=== PATIENT | male | born 1990 | race Caucasian/White ===

== ENCOUNTER 2016-12-04 16:44 | Emergency (ER) | payer OTHER ==
--- NOTE | 2016-12-04 17:26 | ED CLINICAL REPORT ---
Clinical Report - Physicians/Mid Levels [facility] [address] [place] [address] 12/04/2016 16:45 Patient: MARIELA BLANCO Time Seen: 16:59; upon arrival, initial patient contact, initial documentation, patient care assumed. Arrived- By private vehicle. Historian- patient. HISTORY OF PRESENT ILLNESS Chief Complaint: COUGH, SORE THROAT and FEVER. This started about 1 weeks ago and is still present. The illness is described as moderate. The patient has had a mild cough productive of scant amounts of thin, yellow, white sputum . Patient is a smoker. There has been a change from the baseline sputum. He has had sputum production, a sore throat, nasal congestion, sinus pressure and sinus drainage. He has had fever of 100 F, muscle aches and a nasal discharge. No difficulty breathing, chest discomfort or pain, chills or hoarseness. He has had mild right ear pain. Additional history - The patient has had contact with a sick family member. Symptoms of the sick contact include cough. They have had similar symptoms. No recent travel. Similar symptoms previously: None. Recent medical care: Not recently seen/assessed. REVIEW OF SYSTEMS The patient has had a headache. No vomiting or diarrhea. All systems otherwise negative, except as recorded above. PAST HISTORY See nurses notes. PROBLEMS: Bronchitis. Narcotic Dependence. Crush Injury, Lower Extremity. Back Pain. Sprain. Cervical Strain. Concussion. Asthma. URI. Lung Disease. --16:53 Michelle Alarcon RTessaN. ADDITIONAL SURGERIES: None. --16:53 Michelle Alarcon RDenilson. SOCIAL HISTORY Light tobacco smoker. Occasional alcohol use. Not exposed to second-hand smoke at home. No recent travel. Is a local resident. FAMILY HISTORY Negative. ADDITIONAL NOTES The nursing notes have been reviewed with agreement regarding the chief complaint, HPI, ROS, PMH and patient medications and allergies. PHYSICAL EXAM Vital Signs: 12/04/2016 16:51 BP: 132/65. HR: 88. RR: 20. O2 saturation: 98%. Temp: 98.3 F. Pain level now: 5/10. Have been reviewed as normal and appear to be correct. Appearance: Alert. No acute distress. Eyes: Pupils equal, round and reactive to light. Eyes normal inspection. ENT: Ears not normal. Abnormal ear exam. (mild R fluid behind TM). Nose normal. Pharynx normal. Uvula midline. Neck: Normal inspection. Neck supple. CVS: Normal heart rate and rhythm. Heart sounds normal. Pulses normal. Respiratory: No respiratory distress. Breath sounds normal. Back: Normal inspection. Skin: Skin warm and dry. Normal skin color. No rash. Normal skin turgor. Extremities: Extremities exhibit normal ROM. No lower extremity edema. Neuro: Oriented X 3. No motor deficit. No sensory deficit. LABS, X-RAYS, AND EKG Laboratory Tests: Rapid Influenza Screen: (EMELIA: 12/04/2016 17:00) ( MsgRcvd 12/04/2016 17:22) Final results SPECIMEN DESCRIPTION: NASAL Test Result Flag Units (Reference) RAPID INFLUENZA SCREEN DATE: 12/04/16 INFLUENZA A: NEGATIVE SCREEN FOR INFLUENZA A INFLUENZA B: NEGATIVE SCREEN FOR INFLUENZA B . PROGRESS AND PROCEDURES Course of Care: MEDICAL REPRESENTATIVE Student Siva assisting with exam and pt care, with my total supervision. Patient counseled in person regarding the patient's stable condition, test results and diagnosis. 17:26. Differential Diagnosis: Other possible considerations: flu, uri, viral illness, bronchitis, sinusitis, pneumonia. Above considerations are based on history, physical exam and laboratory data. Differential diagnosis was discussed with patient. Disposition: Discharged home in good and unchanged condition (17:26). Condition: good and stable. CLINICAL IMPRESSION Acute viral rhinitis. INSTRUCTIONS Alternate Tylenol (Acetaminophen) and Motrin (Ibuprofen) for fever, temperature greater than 101 degrees orally. Take according to label instructions. Drink plenty of fluids for the next 24 hours until better. Do not smoke. Warnings: GENERAL WARNINGS: Return or contact your physician immediately if your condition worsens or changes unexpectedly, if not improving as expected, or if other problems arise. Specifically return if problem worsens. Follow-up: Follow up with your doctor in about five days even if well. Call for an appointment. Summary of care provided to patient. Understanding of the discharge instructions verbalized by patient. (Electronically signed by Nereyda Haji A.R.N.P. 12/04/2016 19:38)
--- NOTE | 2016-12-04 17:26 | ED CLINICAL REPORT ---
Clinical Report - Physicians/Mid Levels [facility] [address] [place] [address] 12/04/2016 16:45 Patient: MARIELA BLANCO Time Seen: 16:59; upon arrival, initial patient contact, initial documentation, patient care assumed. Arrived- By private vehicle. Historian- patient. HISTORY OF PRESENT ILLNESS Chief Complaint: COUGH, SORE THROAT and FEVER. This started about 1 weeks ago and is still present. The illness is described as moderate. The patient has had a mild cough productive of scant amounts of thin, yellow, white sputum . Patient is a smoker. There has been a change from the baseline sputum. He has had sputum production, a sore throat, nasal congestion, sinus pressure and sinus drainage. He has had fever of 100 F, muscle aches and a nasal discharge. No difficulty breathing, chest discomfort or pain, chills or hoarseness. He has had mild right ear pain. Additional history - The patient has had contact with a sick family member. Symptoms of the sick contact include cough. They have had similar symptoms. No recent travel. Similar symptoms previously: None. Recent medical care: Not recently seen/assessed. REVIEW OF SYSTEMS The patient has had a headache. No vomiting or diarrhea. All systems otherwise negative, except as recorded above. PAST HISTORY See nurses notes. PROBLEMS: Bronchitis. Narcotic Dependence. Crush Injury, Lower Extremity. Back Pain. Sprain. Cervical Strain. Concussion. Asthma. URI. Lung Disease. --16:53 Michelle Alarcon RTessaN. ADDITIONAL SURGERIES: None. --16:53 Michelle Alarcon RDenilson. SOCIAL HISTORY Light tobacco smoker. Occasional alcohol use. Not exposed to second-hand smoke at home. No recent travel. Is a local resident. FAMILY HISTORY Negative. ADDITIONAL NOTES The nursing notes have been reviewed with agreement regarding the chief complaint, HPI, ROS, PMH and patient medications and allergies. PHYSICAL EXAM Vital Signs: 12/04/2016 16:51 BP: 132/65. HR: 88. RR: 20. O2 saturation: 98%. Temp: 98.3 F. Pain level now: 5/10. Have been reviewed as normal and appear to be correct. Appearance: Alert. No acute distress. Eyes: Pupils equal, round and reactive to light. Eyes normal inspection. ENT: Ears not normal. Abnormal ear exam. (mild R fluid behind TM). Nose normal. Pharynx normal. Uvula midline. Neck: Normal inspection. Neck supple. CVS: Normal heart rate and rhythm. Heart sounds normal. Pulses normal. Respiratory: No respiratory distress. Breath sounds normal. Back: Normal inspection. Skin: Skin warm and dry. Normal skin color. No rash. Normal skin turgor. Extremities: Extremities exhibit normal ROM. No lower extremity edema. Neuro: Oriented X 3. No motor deficit. No sensory deficit. LABS, X-RAYS, AND EKG Laboratory Tests: Rapid Influenza Screen: (EMELIA: 12/04/2016 17:00) ( MsgRcvd 12/04/2016 17:22) Final results SPECIMEN DESCRIPTION: NASAL Test Result Flag Units (Reference) RAPID INFLUENZA SCREEN DATE: 12/04/16 INFLUENZA A: NEGATIVE SCREEN FOR INFLUENZA A INFLUENZA B: NEGATIVE SCREEN FOR INFLUENZA B . PROGRESS AND PROCEDURES Course of Care: PROGRESSIVE DIE MAKER Student Siva assisting with exam and pt care, with my total supervision. Patient counseled in person regarding the patient's stable condition, test results and diagnosis. 17:26. Differential Diagnosis: Other possible considerations: flu, uri, viral illness, bronchitis, sinusitis, pneumonia. Above considerations are based on history, physical exam and laboratory data. Differential diagnosis was discussed with patient. Disposition: Discharged home in good and unchanged condition (17:26). Condition: good and stable. CLINICAL IMPRESSION Acute viral rhinitis. INSTRUCTIONS Alternate Tylenol (Acetaminophen) and Motrin (Ibuprofen) for fever, temperature greater than 101 degrees orally. Take according to label instructions. Drink plenty of fluids for the next 24 hours until better. Do not smoke. Warnings: GENERAL WARNINGS: Return or contact your physician immediately if your condition worsens or changes unexpectedly, if not improving as expected, or if other problems arise. Specifically return if problem worsens. Follow-up: Follow up with your doctor in about five days even if well. Call for an appointment. Summary of care provided to patient. Understanding of the discharge instructions verbalized by patient. (Electronically signed by Nereyda Haji A.R.N.P. 12/04/2016 19:38)
--- NOTE | 2016-12-04 17:26 | ED ORDER SUMMARY ---
..... Patient: MARIELA BLANCO OrderSheet [facility] VisitID: [id number] [address] [place] [address] 26y, M Registration Date/Time: 12/04/2016 ORDER SHEET Weight: 74.8 kg (stated) Allergies: No Known Drug Allergy GENERAL ORDERS: Rapid Influenza Screen (Nasal Pharyngeal) (nasal) Urgent (17:01 12/04/2016 DDean R.N. per protocol) ([facility] 17:03 [facility]) MEDICATION ORDERS: IV FLUIDS: ORDER SHEET NOTES: [Electronically signed by Deepali Willoughby R.N. (17:46 12/04/2016)] [Electronically signed by Nereyda HajiNTessaPTessa (19:38 12/04/2016)] [Electronically locked/signed by Deepali Willoughby R.N. (17:46 12/04/2016)]
--- NOTE | 2016-12-04 17:26 | ED ORDER SUMMARY ---
..... Patient: MARIELA BLANCO OrderSheet [facility] VisitID: [id number] [address] [place] [address] 26y, M Registration Date/Time: 12/04/2016 ORDER SHEET Weight: 74.8 kg (stated) Allergies: No Known Drug Allergy GENERAL ORDERS: Rapid Influenza Screen (Nasal Pharyngeal) (nasal) Urgent (17:01 12/04/2016 DDean R.N. per protocol) ([facility] 17:03 [facility]) MEDICATION ORDERS: IV FLUIDS: ORDER SHEET NOTES: [Electronically signed by Deepali Willoughby R.N. (17:46 12/04/2016)] [Electronically signed by Nereyda HajiNTessaPTessa (19:38 12/04/2016)] [Electronically locked/signed by Deepali Willoughby R.N. (17:46 12/04/2016)]
--- NOTE | 2016-12-04 17:26 | ED NURSING NOTES ---
Clinical Report - Nurses [place] [address] [place] [address] 12/04/2016 16:45 Patient: MARIELA BLANCO TRIAGE Triage time 1645. Acuity: LEVEL 4. Chief Complaint: COUGH, FEVER and SORE THROAT. --16:56 Michelle Alarcon R.N. 16:51 12/04/16. BP: 132/65. HR: 88. RR: 20. O2 saturation: 98%. Temp: 98.3 F. Pain level now: 03/10. --16:56 Michelle Alarcon R.N. Weight: 74.8 kg stated. Height/Length: 68 inches Per Patient. BMI: 25.1. --16:52 Michelle Alarcon R.N. Medications None. --16:54 Michelle Alarcon R.N. Ibuprofen Oral 600 mg, PRN, last dose 0600. --16:54 Michelle Alarcon R.N. Tylenol 650mg at 12 noon . --16:54 Michelle Alarcon R.N. OTC cold med at noon . --16:55 Michelle Alarcon R.N. Robitussin cough syrup (OTC) last used last night 2200. --16:55 Michelle Alarcon R.N. Allergies No Known Drug Allergy. --16:54 Michelle Alarcon R.N. History Arrived by private vehicle. Historian: patient. Unaccompanied. Primary physician ([facility]). ( rt ear pain). He has had fatigue, a headache and sinus pain. Reports muscle aches. PAST MEDICAL HX: The patient has had contact with a sick spouse and child. SOCIAL HX: Light tobacco smoker (cigarette)- less than 1/2 a pack per day. Occasional alcohol use. No drug use. --16:56 Michelle Alracon R.N. PROBLEMS: Bronchitis. Narcotic Dependence. Crush Injury, Lower Extremity. Back Pain. Sprain. Cervical Strain. Concussion. Asthma. URI. Lung Disease. --16:53 Michelle Alarcon R.N. ADDITIONAL SURGERIES: None. --16:53 Michelle Alarcon R.N. Interventions ID band on patient. To treatment room. --16:56 Michelle Alarcon R.N. PHYSICAL ASSESSMENT 16:45. Ambulatory to room. Patient gowned. GENERAL / NEURO / PSYCH: Alert. Oriented X 4. Appears in no acute distress. HEENT: Abnormal ear exam. Voice within normal limits. Mucous membranes are pink. RESPIRATORY: Respirations not labored. Cough. CVS: Capillary refill less than 2 seconds. SKIN: Skin is warm and dry. --16:57 Michelle Alarcon R.N. NURSING PROGRESS NOTES 16:45. Patient gowned. Head of bed elevated. Patient identifiers checked. Call light placed in reach. Side rails up. Bed placed in lowest position. Patient ready for evaluation- chart flagged. --16:56 Michelle Alarcon R.N. 17:02 12/04/16. Patient ID band checked for patient name and birthdate: patient confirmed. Flu swab obtained by RN via nasal pharyngeal swab. Labeled in the presence of the patient and sent to lab. --17:02 Michelle Alarcon R.N. DISPOSITION / DISCHARGE 17:44 12/04/16. Departure time: 17:44 Dec 04 2016. Condition at departure: unchanged and stable. No learning barriers present. Patient verbalized understanding. Written instructions provided in Estonian. The patient was discharged home and unaccompanied at time of discharge. He left the Emergency Department ambulatory and via private vehicle. Patient driving. --17:44 Deepali Willoughby R.N. 17:44 12/04/16. BP: 132/63. HR: 90. RR: 18. O2 saturation: 100%. Temp: 98.3 F. Pain level now 8/10. --17:44 Deepali Willoughby R.N. Locked/Released at 12/04/2016 17:46 by Deepali Willoughby R.N.
--- NOTE | 2016-12-04 17:26 | ED NURSING NOTES ---
Clinical Report - Nurses [place] [address] [place] [address] 12/04/2016 16:45 Patient: MARIELA BLANCO TRIAGE Triage time 1645. Acuity: LEVEL 4. Chief Complaint: COUGH, FEVER and SORE THROAT. --16:56 Michelle Alarcon R.N. 16:51 12/04/16. BP: 132/65. HR: 88. RR: 20. O2 saturation: 98%. Temp: 98.3 F. Pain level now: 03/10. --16:56 Michelle Alarcon R.N. Weight: 74.8 kg stated. Height/Length: 68 inches Per Patient. BMI: 25.1. --16:52 Michelle Alarcon R.N. Medications None. --16:54 Michelle Alarcon R.N. Ibuprofen Oral 600 mg, PRN, last dose 0600. --16:54 Michelle Alarcon R.N. Tylenol 650mg at 12 noon . --16:54 Michelle Alarcon R.N. OTC cold med at noon . --16:55 Michelle Alarcon R.N. Robitussin cough syrup (OTC) last used last night 2200. --16:55 Michelle Alarcon R.N. Allergies No Known Drug Allergy. --16:54 Michelle Alarcon R.N. History Arrived by private vehicle. Historian: patient. Unaccompanied. Primary physician ([facility]). ( rt ear pain). He has had fatigue, a headache and sinus pain. Reports muscle aches. PAST MEDICAL HX: The patient has had contact with a sick spouse and child. SOCIAL HX: Light tobacco smoker (cigarette)- less than 1/2 a pack per day. Occasional alcohol use. No drug use. --16:56 Michelle Alarcon R.N. PROBLEMS: Bronchitis. Narcotic Dependence. Crush Injury, Lower Extremity. Back Pain. Sprain. Cervical Strain. Concussion. Asthma. URI. Lung Disease. --16:53 Michelle Alarcon R.N. ADDITIONAL SURGERIES: None. --16:53 Michelle Alarcon R.N. Interventions ID band on patient. To treatment room. --16:56 Michelle Alarcon R.N. PHYSICAL ASSESSMENT 16:45. Ambulatory to room. Patient gowned. GENERAL / NEURO / PSYCH: Alert. Oriented X 4. Appears in no acute distress. HEENT: Abnormal ear exam. Voice within normal limits. Mucous membranes are pink. RESPIRATORY: Respirations not labored. Cough. CVS: Capillary refill less than 2 seconds. SKIN: Skin is warm and dry. --16:57 Michelle Alarcon R.N. NURSING PROGRESS NOTES 16:45. Patient gowned. Head of bed elevated. Patient identifiers checked. Call light placed in reach. Side rails up. Bed placed in lowest position. Patient ready for evaluation- chart flagged. --16:56 Michelle Alarcon R.N. 17:02 12/04/16. Patient ID band checked for patient name and birthdate: patient confirmed. Flu swab obtained by RN via nasal pharyngeal swab. Labeled in the presence of the patient and sent to lab. --17:02 Michelle Alarcon R.N. DISPOSITION / DISCHARGE 17:44 12/04/16. Departure time: 17:44 Dec 04 2016. Condition at departure: unchanged and stable. No learning barriers present. Patient verbalized understanding. Written instructions provided in Portuguese. The patient was discharged home and unaccompanied at time of discharge. He left the Emergency Department ambulatory and via private vehicle. Patient driving. --17:44 Deepali Willoughby R.N. 17:44 12/04/16. BP: 132/63. HR: 90. RR: 18. O2 saturation: 100%. Temp: 98.3 F. Pain level now 8/10. --17:44 Deepali Willoughby R.N. Locked/Released at 12/04/2016 17:46 by Deepali Willoughby R.N.
--- NOTE | 2016-12-04 19:38 | ED MAR SUMMARY ---
..... Medication Administration Record [facility] [address] [place], [place] [id number] Patient: MARIELA BLANCO Smiley Visit ID: [id number] 26y, M Weight: 74.8 kg Height/Length: 68 in BMI: 25.1 ALLERGIES: No Known Drug Allergy
--- NOTE | 2016-12-04 19:38 | ED MAR SUMMARY ---
..... Medication Administration Record [facility] [address] [place], [place] [id number] Patient: MARIELA BLANCO Smiley Visit ID: [id number] 26y, M Weight: 74.8 kg Height/Length: 68 in BMI: 25.1 ALLERGIES: No Known Drug Allergy
--- NOTE | 2016-12-04 19:38 | ED MED RECONCILIATION SUMMARY ---
Patient: MARIELA BLANCO Medication Reconciliation Report [facility] VisitID: [id number] [address] [place] [address] 26y, M Registration Date/Time: 12/04/2016 Weight: 74.8 kg Height/Length: 68 in. BMI: 25.1 ALLERGIES: No Known Drug Allergy The patient's Home Medications are listed below: THE FOLLOWING MEDICATIONS NEED TO BE RECONCILED: Ibuprofen Oral 600 mg, PRN, last dose: 0600 OTC cold med at noon Robitussin cough syrup (OTC) last used last night 2200 Tylenol 650mg at 12 noon The source(s) of the original Home Medication information: Not obtained. The following Medications were given to the patient in the Emergency Department: None. The following Medications were prescribed to the patient: None.
--- NOTE | 2016-12-04 19:38 | ED MED RECONCILIATION SUMMARY ---
Patient: MARIELA BLANCO Medication Reconciliation Report [facility] VisitID: [id number] [address] [place] [address] 26y, M Registration Date/Time: 12/04/2016 Weight: 74.8 kg Height/Length: 68 in. BMI: 25.1 ALLERGIES: No Known Drug Allergy The patient's Home Medications are listed below: THE FOLLOWING MEDICATIONS NEED TO BE RECONCILED: Ibuprofen Oral 600 mg, PRN, last dose: 0600 OTC cold med at noon Robitussin cough syrup (OTC) last used last night 2200 Tylenol 650mg at 12 noon The source(s) of the original Home Medication information: Not obtained. The following Medications were given to the patient in the Emergency Department: None. The following Medications were prescribed to the patient: None.
--- NOTE | 2016-12-04 19:38 | ED DISCHARGE INSTRUCTIONS ---
Patient: MARIELA BLANCO General Instructions [facility] VisitID: [id number] [place] [address] 26y, M Registration Date/Time: 12/04/2016 Acute viral rhinitis. INSTRUCTIONS Alternate Tylenol (Acetaminophen) and Motrin (Ibuprofen) for fever, temperature greater than 101 degrees orally. Take according to label instructions. Drink plenty of fluids for the next 24 hours until better. Do not smoke. Warnings: GENERAL WARNINGS: Return or contact your physician immediately if your condition worsens or changes unexpectedly, if not improving as expected, or if other problems arise. Specifically return if problem worsens. Follow-up: Follow up with your doctor in about five days even if well. Call for an appointment. Summary of care provided to patient. Understanding of the discharge instructions verbalized by patient. ADDITIONAL INFORMATION Viral Respiratory Illness [Adult] You have an Upper Respiratory Illness (URI) caused by a virus. This illness is contagious during the first few days. It is spread through the air by coughing and sneezing or by direct contact (touching the sick person and then touching your own eyes, nose or mouth). Most viral illnesses go away within 7-10 days with rest and simple home remedies. Sometimes, the illness may last for several weeks. Antibiotics will not kill a virus and are generally not prescribed for this condition. Home Care: 1) If symptoms are severe, rest at home for the first 2-3 days. When you resume activity, don't let yourself get too tired. 2) Avoid being exposed to cigarette smoke (yours or others). 3) Tylenol (acetaminophen) or ibuprofen (Advil, Motrin) will help fever, muscle aching and headache. (Persons under 18 with fever should not take aspirin since this may cause liver damage.) 4) Your appetite may be poor, so a light diet is fine. Avoid dehydration by drinking 6-8 glasses of fluids per day (water, soft drinks, juices, tea, soup). Extra fluids will help loosen secretions in the nose and lungs. 5) Hfdj-ten-fviakzz cold medicines will not shorten the length of time youre sick, but they may be helpful for the following symptoms: cough (Robitussin DM); sore throat (Chloraseptic lozenges or spray); nasal and sinus congestion (Actifed, Sudafed, Chlortrimeton). Follow Up with your doctor or as advised if you dont improve over the next week. Get Prompt Medical Attention if any of the following occur: -- Cough with lots of colored sputum (mucus) or blood in your sputum -- Chest pain, shortness of breath, wheezing or have trouble breathing -- Severe headache; face, neck or ear pain -- Fever over 100.4 F (38.0 C) for more than three days -- You cant swallow due to throat pain Fever Control (Adult) A fever is a natural reaction of the body to an illness. In most cases, the temperature itself is not harmful. It actually helps the body fight infections. A fever does not need to be treated unless you feel very uncomfortable. Home Care If you feel warm, check your temperature. If you feel very uncomfortable and your temperature is at or higher than 100.4F (38C) oral, you may take acetaminophen (Tylenol) every 4 to 6 hours. If you cant take or keep down oral medicine, ask your pharmacist for Tylenol suppositories, which you can get without a prescription. If the fever does not respond to acetaminophen within 1 hour, take ibuprofen (Advil or Motrin). If this works, keep taking the ibuprofen every 6 to 8 hours. Note: If you have chronic liver or kidney disease or ever had a stomach ulcer or GI bleeding, talk with your doctor before using these medications. If either medication alone does not keep the fever down, you may alternate the two medicines every 3 to 4 hours, only if your healthcare provider has instructed you to do so. For example, take Motrin then wait 3 hours, take Tylenol then wait 3 hours, take Motrin, and so on. Follow your healthcare providers instructions exactly. Clothing: Keep clothing light because excess body heat is lost through the skin. The fever will go up if you wear extra layers or wrap in blankets. Fluids: Fever causes the body to lose water through evaporation. Drink plenty of fluids such as water, juice, clear sodas, charo garry, or lemonade. Do not use aspirin in anyone under 18 years of age who is ill with a fever. It can cause severe liver damage. Follow Up with your doctor or as advised by our staff if you do not get better after 48 hours. Get Prompt Medical Attention if any of the following occur: Fever does not get better after taking fever medication Fast or difficult breathing Earache, sinus pain, stiff or painful neck, headache, repeated diarrhea or vomiting You feel unusually irritable, drowsy, or confused A rash appears You feel weak or dizzy, or that you might faint You have been given the following additional information: Uri, Viral, No Abx (Adult) Fever Control (Adult) (Electronically signed by Nereyda aHji A.R.N.P. 12/04/2016 19:38)
== END 2016-12-04 17:44 | disposition home or self-care (01) ==
LOC: ED SRH 16:44
DX: J00 Acute nasopharyngitis [common cold] (principal); B97.89 Other viral agents as the cause of diseases classified elsewhere; F17.210 Nicotine dependence, cigarettes, uncomplicated
CPT/HCPCS: 91400